=== PATIENT | male | born 1965 | race African-American/Black ===

== ENCOUNTER 2023-05-27 08:21 | Emergency (ER) | payer OTHER ==
[2023-05-27] MEDS ORDERED: Ketorolac 30 MG/ML SDV IM ONE (08:44)
[2023-05-27] MEDS ORDERED: methylPREDNISolone Sodium Succinate 125 MG/2 ML SDV IM ONE (08:45)
== END 2023-05-27 09:01 | disposition home or self-care (01) ==
LOC: MW.ED 08:21
DX: M54.41 Lumbago with sciatica, right side (principal); I10 Essential (primary) hypertension; Z79.899 Other long term (current) drug therapy
CPT/HCPCS: 96372; 99283; J1885; J2930

== ENCOUNTER 2023-06-30 09:38 | Emergency (ER) | payer OTHER ==
[2023-06-30] MEDS ORDERED: Cyclobenzaprine 10 MG Tab PO ONE (10:12)
[2023-06-30] MEDS ORDERED: Ketorolac 60 MG/2 ML SDV IM ONE (10:12)
== END 2023-06-30 10:33 | disposition home or self-care (01) ==
LOC: MW.ED 09:38
DX: M54.41 Lumbago with sciatica, right side (principal); I10 Essential (primary) hypertension; Z79.899 Other long term (current) drug therapy
CPT/HCPCS: 96372; 99283; A9270; J1885; 99284